=== PATIENT | male | born 1965 | race Caucasian/White ===

== ENCOUNTER 2021-10-16 16:37 | Observation (INO) ==
[2021-10-16] MEDS ORDERED: 0.9 % Sodium Chloride 1,000 ML IV ONE (17:16)
[2021-10-16] MEDS ORDERED: Morphine Sulfate 2 MG/ML SYRINGE IVP ONE (17:16)
[2021-10-16] MEDS ORDERED: Ondansetron 4 MG/2 ML VIAL IVP PRN ×2 (17:16→19:38)
[2021-10-16] MEDS ORDERED: Ketorolac 30 MG/ML VIAL IVP ONE (17:16)
[2021-10-16 17:29] LABS: Basophils % 0.2 %; Hematocrit 41.6 % (37.5-50.1); Hemoglobin 14.5 g/dL (12.9-16.9); Immature Granulocytes % 0.4 % (0-4); Lymphocytes # 1.7 K/mcL (0.6-4.6); Lymphocytes % 13.8 %; Mean Corpuscular HGB Conc 34.9 g/dL (31.6-35.5); Mean Corpuscular Hemoglobin 31.3 pg (28.0-33.3); Mean Corpuscular Volume 89.7 fL (83.0-100.0); Mean Platelet Volume 9.6 fL (9.4-12.4); Monocytes # 1.1 K/mcL (0.0-1.3); Monocytes % 8.8 %; Neutrophils # 9.4 K/mcL (1.6-8.9); Platelet Count 255 K/mcL (140-400); Red Blood Count 4.64 M/mcL (4.19-5.50); Red Cell Distribution Width 12.2 % (11.5-14.5); Segmented Neutrophils % 76.8 %; White Blood Count 12.2 K/mcL (4.3-11.1)
[2021-10-16 17:43] LABS: Albumin 4.2 g/dL (3.5-5.7); Albumin/Globulin Ratio 1.4 (1.1-2.2); Bilirubin,Direct 0.2 mg/dL (0.0-0.2); Bilirubin,Indirect 0.9 mg/dL (0.0-1.0); Bilirubin,Total 1.1 mg/dL (0.3-1.0); Calcium 9.2 mg/dL (8.6-10.3); Globulin 3.1 g/dL (2.4-3.5); Potassium 3.7 mEq/L (3.5-5.1); Total Protein 7.3 g/dL (6.4-8.9)
[2021-10-16 18:10] LABS: Bilirubin,Urine Negative (Negative); Blood,Urine Large (Negative); Clarity,Urine Turbid (Clear); Color,Urine Yellow (Yellow); Glucose,Urine (UA) Normal (Normal); Ketones,Urine 20 mg/dL (Negative); Leukocyte Esterase,Urine Small (Negative); Nitrite,Urine Negative (Negative); Protein,Urine 70 mg/dL (Neg-Trace); Specific Gravity,Urine 1.025 (1.010-1.025)
[2021-10-16 18:19] LABS: Squamous Epithelial Cell,Urine Few per hpf (None-Few)
[2021-10-16 18:20] LABS: Amorphous Sediment,Urine Few per hpf (None-Few); RBC,Urine 50-100 per hpf (0-3); WBC,Urine 0-3 per hpf (0-3)
[2021-10-16] MEDS ORDERED: Naloxone 0.4 MG/ML INJ IVP PRN (19:38)
[2021-10-16] MEDS ORDERED: Acetaminophen 325 MG TABLET PO PRN (19:38)
[2021-10-16] MEDS: 0.9 % Sodium Chloride 1,000 ML IVC SCH (20:55)
[2021-10-16] MEDS: cefTRIAXone 1,000 MG in 0.9 % Sodium Chloride 10 ML IVPB SCH (21:06)
[2021-10-17 01:37] LABS: Basophils % 0.4 %; Eosinophils % 0.2 %; Hematocrit 37.3 % (37.5-50.1); Immature Granulocytes % 0.1 % (0-4); Lymphocytes # 2.4 K/mcL (0.6-4.6); Lymphocytes % 28.2 %; Mean Corpuscular HGB Conc 33.8 g/dL (31.6-35.5); Mean Corpuscular Hemoglobin 30.7 pg (28.0-33.3); Mean Corpuscular Volume 90.8 fL (83.0-100.0); Mean Platelet Volume 9.7 fL (9.4-12.4); Platelet Count 219 K/mcL (140-400); Red Blood Count 4.11 M/mcL (4.19-5.50); Red Cell Distribution Width 12.2 % (11.5-14.5); Segmented Neutrophils % 59.1 %; White Blood Count 8.5 K/mcL (4.3-11.1)
[2021-10-17 01:38] LABS: Hemoglobin 12.6 g/dL (12.9-16.9)
[2021-10-17 01:44] LABS: INR 1.2; Prothrombin Time 13.2 Seconds (9.4-12.1)
[2021-10-17 02:03] LABS: Calcium 8.5 mg/dL (8.6-10.3); Phosphorous 3.3 mg/dL (2.7-4.5); Potassium 3.8 mEq/L (3.5-5.1)
[2021-10-17] MEDS: 0.9 % Sodium Chloride 1,000 ML IVC SCH (06:06)
[2021-10-17] MEDS: cefTRIAXone 1,000 MG in 0.9 % Sodium Chloride 10 ML IVPB SCH (08:05)
[2021-10-17] MEDS ORDERED: Ondansetron 4 MG/2 ML VIAL IVP PRN ×2 (14:09→16:16)
[2021-10-17] MEDS ORDERED: *HR* FentaNYL (PF) 100 MCG/2 ML VIAL IVP PRN (14:09)
[2021-10-17] MEDS ORDERED: *HR* FentaNYL (PF) 100 MCG/2 ML VIAL ONE (14:22)
[2021-10-17] MEDS ORDERED: *HR* Midazolam HCl 2 MG/2 ML VIAL ONE (14:22)
[2021-10-17] MEDS ORDERED: *HR* Propofol 200 MG/20 ML VIAL IVP ONE (14:22)
[2021-10-17] MEDS ORDERED: Ondansetron 4 MG/2 ML VIAL ONE (14:26)
[2021-10-17] MEDS ORDERED: Lidocaine -MPF 2% 2 ML VIAL ONE (14:26)
[2021-10-17] MEDS ORDERED: Ketamine HCL *QUVA* 50mg (1mL) SYRINGE ONE (15:16)
[2021-10-17] MEDS ORDERED: Ketorolac 30 MG/ML VIAL ONE (15:37)
[2021-10-17] MEDS ORDERED: Isovue-300 50ML VIAL ONE (16:00)
[2021-10-17] MEDS ORDERED: Naloxone 0.4 MG/ML INJ IVP PRN (16:16)
[2021-10-17] MEDS ORDERED: Acetaminophen 325 MG TABLET PO PRN (16:16)
[2021-10-18 01:44] LABS: Basophils % 0.2 %; Hematocrit 36.5 % (37.5-50.1); Hemoglobin 12.7 g/dL (12.9-16.9); Immature Granulocytes % 0.2 % (0-4); Lymphocytes # 0.8 K/mcL (0.6-4.6); Lymphocytes % 12.2 %; Mean Corpuscular HGB Conc 34.8 g/dL (31.6-35.5); Mean Corpuscular Hemoglobin 31.8 pg (28.0-33.3); Mean Corpuscular Volume 91.3 fL (83.0-100.0); Mean Platelet Volume 9.7 fL (9.4-12.4); Monocytes # 0.4 K/mcL (0.0-1.3); Monocytes % 6.2 %; Neutrophils # 5.3 K/mcL (1.6-8.9); Platelet Count 229 K/mcL (140-400); Red Cell Distribution Width 11.9 % (11.5-14.5); Segmented Neutrophils % 81.2 %; White Blood Count 6.5 K/mcL (4.3-11.1)
[2021-10-18 02:03] LABS: Albumin 3.6 g/dL (3.5-5.7); Albumin/Globulin Ratio 1.2 (1.1-2.2); Bilirubin,Total 0.5 mg/dL (0.3-1.0); Calcium 8.9 mg/dL (8.6-10.3); Globulin 2.9 g/dL (2.4-3.5); Potassium 4.5 mEq/L (3.5-5.1); Total Protein 6.5 g/dL (6.4-8.9)
[2021-10-18 08:49] VITALS: BP 129/80; PULSE 46; TEMP 97.7; O2SAT 96
[2021-10-18] MEDS ORDERED: cefTRIAXone 1,000 MG in 0.9 % Sodium Chloride 10 ML IVPB SCH (09:00)
== END 2021-10-18 10:45 | disposition home or self-care (01) ==
LOC: 3ANU 16:37 → EMEROOARM 16:37 → 3ANU 19:48
PROVIDERS: ADMIT Student in an Organized Health Care Education/Training Program; ATTEND Student in an Organized Health Care Education/Training Program